=== PATIENT | female | born 1930 | race Caucasian/White ===

== ENCOUNTER → 2017-05-06 | Outpatient (REF) | payer MEDICARE | LOC: M LAB REF 12:43 | PROVIDERS: ATTEND Nurse Practitioner Family | DX: N39.0 Urinary tract infection, site not specified (principal) ==

== ENCOUNTER → 2017-06-24 | Outpatient (CLI) | payer MEDICARE ==
--- NOTE | 2017-06-24 16:35 | REP ---
Parathyroid nuclear scintigraphy with SPECT imaging: History: Hyperparathyroidism. Technique: 26.7 mCi of technetium 99m sestamibi is injected and 15-minute delay and three hour delayed planar images of the head and neck and mediastinum region are acquired. In addition a SPECT acquisition is acquired. Scintigraphic findings: Initial 15-minute images demonstrate normal salivary and thyroid uptake. Delayed scans show washout from the normal thyroid gland. No persistent head and neck or mediastinal uptake focus is seen to suggest parathyroid adenoma. SPECT images are unremarkable. Impression: Negative parathyroid nuclear scintigraphy. Signed by Rick Jones MD 06/24/2017 05:28 P
== END ==
LOC: M RAD 09:04
PROVIDERS: ATTEND Internal Medicine Endocrinology, Diabetes & Metabolism
DX: E21.0 Primary hyperparathyroidism (principal)
CPT/HCPCS: 78070; 78803; A9500

== ENCOUNTER → 2017-08-02 | Outpatient (CLI) | payer MEDICARE ==
[2017-08-03 15:52] LABS: ANION GAP 8 MEQ/L (8-16); BLOOD UREA NITROGEN 26 MG/DL (7-18); CALCIUM LEVEL 10.6 MG/DL (8.8-10.2); CARBON DIOXIDE LEVEL 28 MEQ/L (21-32); CHLORIDE LEVEL 106 MEQ/L (98-107); CREATININE FOR GFR 0.89 MG/DL (0.55-1.02); GLOMERULAR FILTRATION RATE > 60.0 (>32); GLUCOSE, FASTING 89 MG/DL (83-110); POTASSIUM SERUM 3.9 MEQ/L (3.5-5.1); SODIUM LEVEL 142 MEQ/L (136-145)
== END ==
LOC: M LAB 12:05
PROVIDERS: ATTEND Internal Medicine Endocrinology, Diabetes & Metabolism
DX: E21.0 Primary hyperparathyroidism (principal)

== ENCOUNTER → 2017-12-23 | Outpatient (CLI) | payer MEDICARE ==
[2017-12-23 12:53] LABS: CALCIUM LEVEL 9.5 MG/DL (8.8-10.2)
== END ==
LOC: M LAB 11:30
DX: E21.0 Primary hyperparathyroidism (principal)
CPT/HCPCS: 82310

== ENCOUNTER → 2018-01-03 | Outpatient (REF) | payer MEDICARE ==
[2018-01-04 13:20] LABS: FOLATE > 24.0 NG/ML; VITAMIN B12 LEVEL 591 PG/ML
[2018-01-04 13:46] LABS: FERRITIN 55 NG/ML (8-252); IRON (FE) 89 UG/DL (50-170); PERCENT SATURATION 25.6 % (13.2-45.0); TOTAL IRON BINDING CAPACITY 347 UG/DL (250-450)
== END ==
LOC: M LAB REF 12:02
DX: D64.9 Anemia, unspecified (principal)
CPT/HCPCS: 82746

== ENCOUNTER → 2018-05-31 | Outpatient (REF) | payer MEDICARE ==
[2018-05-31 17:51] LABS: RETIC HEMOGLOBIN EQUIVALENT 26.5 pg (24-36); RETICULOCYTE # 82.5 10^9/L (17-77); RETICULOCYTE % 3.2 % (0.5-1.5)
[2018-06-01 15:08] LABS: IMMEDIATE SPIN CROSSMATCH 1 2
== END ==
LOC: M LAB REF 16:31
DX: D64.9 Anemia, unspecified (principal)
CPT/HCPCS: 85046

== ENCOUNTER 2018-06-01 12:03 | Outpatient (CLI) | payer MEDICARE ==
[2018-06-01] MEDS: diphenhydrAMINE 25 MG CAP PO (12:49)
[2018-06-01] MEDS: ACETAMINOPHEN TAB 650MG DOSE (2X325MG) PO (12:49)
== END 2018-06-01 17:30 | disposition home or self-care (01) ==
LOC: M INFU 12:03
DX: D64.9 Anemia, unspecified (principal); Z79.82 Long term (current) use of aspirin; Z79.899 Other long term (current) drug therapy; Z91.013 Allergy to seafood; Z88.8 Allergy status to other drugs, medicaments and biological substances
CPT/HCPCS: 36430

== ENCOUNTER → 2018-06-28 | Outpatient (REF) | payer MEDICARE ==
[2018-06-28 14:12] LABS: RETIC HEMOGLOBIN EQUIVALENT 33.1 pg (24-36); RETICULOCYTE # 63.2 10^9/L (17-77); RETICULOCYTE % 1.9 % (0.5-1.5)
[2018-06-28 14:18] LABS: FERRITIN 14 NG/ML (8-252); IRON (FE) 55 UG/DL (50-170); PERCENT SATURATION 14.2 % (13.2-45.0); TOTAL IRON BINDING CAPACITY 387 UG/DL (250-450)
[2018-06-28 14:25] LABS: VITAMIN B12 LEVEL 965 PG/ML
[2018-06-28 14:26] LABS: FOLATE > 24.0 NG/ML
[2018-06-29 08:15] LABS: HAPTOGLOBIN 81 mg/dL (34-200)
== END ==
LOC: M LABDRAW1 12:50
DX: D64.9 Anemia, unspecified (principal)
CPT/HCPCS: 82746

== ENCOUNTER → 2018-06-30 | Outpatient (CLI) | payer MEDICARE ==
[2018-06-30 13:59] LABS: CREATININE FOR GFR 0.85 MG/DL (0.55-1.30); GLOMERULAR FILTRATION RATE > 60.0 (>32); IMMUNOGLOBULIN A 86 MG/DL (70-400)
[2018-06-30 13:59] LABS: BLOOD UREA NITROGEN 26 MG/DL (7-18)
[2018-07-01 10:22] LABS: TISSUE TRANSGLUTAMINASE IgA <2 U/mL (0-3)
== END ==
LOC: M LAB 12:54
DX: D50.9 Iron deficiency anemia, unspecified (principal); R19.4 Change in bowel habit
CPT/HCPCS: 82565

== ENCOUNTER → 2018-07-04 | Outpatient (REF) | payer MEDICARE | LOC: M LAB REF 12:40 | DX: R19.4 Change in bowel habit (principal) | CPT/HCPCS: 87507 ==

== ENCOUNTER → 2018-07-13 | Outpatient (REF) | payer MEDICARE | LOC: M LAB REF 15:20 | DX: N39.0 Urinary tract infection, site not specified (principal) | CPT/HCPCS: 87186 ==

== ENCOUNTER → 2018-07-15 | Outpatient (CLI) | payer MEDICARE ==
[~2018-07-15] MED LIST: GLUCAGON FOR INJ 1 MG VIAL (J1610) As Ordered; ISOVUE-370 76% 100ML VIAL (Q9967) As Ordered; VoLumen 0.1% SUSPENSION 450ML BOTTLE As Ordered
== END ==
LOC: M RAD 09:58
DX: I70.8 Atherosclerosis of other arteries (principal); K44.9 Diaphragmatic hernia without obstruction or gangrene; K57.30 Diverticulosis of large intestine without perforation or abscess without bleeding; D50.9 Iron deficiency anemia, unspecified; R19.4 Change in bowel habit
CPT/HCPCS: Q9967

== ENCOUNTER 2018-07-22 10:29 | Day surgery (SDC) | payer MEDICARE ==
[~2018-07-22] VITALS: Ht 162.6 cm; Wt 61.7 kg
[~2018-07-22 10:29] MED LIST changes: +AMLO5TAB4 PO; +APAP325T4 PO; +ASPI81TA85 PO; +ATEN100T PO; +ATOR1TAB21 PO; +CENT1TAB PO; +CITRTAB13 PO; +COQ-100C2 PO; +FERR325T3 PO; +FURO20TA2 PO; -GLUCAGON FOR INJ 1 MG VIAL (J1610) As Ordered; -ISOVUE-370 76% 100ML VIAL (Q9967) As Ordered; +KLOR10TA76 PO; +LIDOCAINE 2% INJ 100 MG/5 ML SDV (FOR ANES.) As Ordered ONE; +LUTE15CA PO; +POTA10TA67 PO; +PRED25TA PO; +PRIL20TA2 PO; +PROPOFOL 500 MG/50 ML VIAL As Ordered ONE; +SENN8.6T7 PO; -VoLumen 0.1% SUSPENSION 450ML BOTTLE As Ordered
[2018-07-22] MEDS ORDERED: NS 1,000 ML IV ONE (11:00)
[2018-07-22 12:52] VITALS: BP 152/67
--- NOTE | 2018-07-22 12:52 | ROOR ---
Patient Name: Geetha Orellana Procedure Date: 07/22/2018 11:45 AM Date of : 1930 Age: 88 Room: [facility] Gender: Female Note Status: Finalized Procedure: Upper GI endoscopy Indications: Iron deficiency anemia Providers: Rogelio Turcios MD Referring MD: Suzanna SOSA MD Requesting Provider: Medicines: Monitored Anesthesia Care Complications: No immediate complications. Procedure: Pre-Anesthesia Assessment: - Prior to the procedure, a History and Physical was performed, and patient medications and allergies were reviewed. The patient is competent. The risks and benefits of the procedure and the sedation options and risks were discussed with the patient. All questions were answered and informed consent was obtained. Patient identification and proposed procedure were verified by the physician, the nurse and the anesthesiologist in the procedure room. Mental Status Examination: alert and oriented. Airway Examination: normal oropharyngeal airway and neck mobility. Respiratory Examination: clear to auscultation. CV Examination: normal. Prophylactic Antibiotics: The patient does not require prophylactic antibiotics. Prior Anticoagulants: The patient has taken no previous anticoagulant or antiplatelet agents. ASA Grade Assessment: III - A patient with severe systemic disease. After reviewing the risks and benefits, the patient was deemed in satisfactory condition to undergo the procedure. The anesthesia plan was to use monitored anesthesia care (MAC). Immediately prior to administration of medications, the patient was re-assessed for adequacy to receive sedatives. The heart rate, respiratory rate, oxygen saturations, blood pressure, adequacy of pulmonary ventilation, and response to care were monitored throughout the procedure. The physical status of the patient was re-assessed after the procedure. The Endoscope was introduced through the mouth, and advanced to the second part of duodenum. The upper GI endoscopy was accomplished without difficulty. The patient tolerated the procedure well. Findings: The Z-line was regular and was found 40 cm from the incisors. One 10 mm sessile polyp with no stigmata of recent bleeding was found in the gastric antrum. The polyp was removed with a cold biopsy forceps. Resection and retrieval were complete. For hemostasis, one hemostatic clip was successfully placed. There was no bleeding at the end of the procedure. Verification of patient identification for the specimen was done by the physician and nurse using the patient's name, date and medical record number. Estimated blood loss was minimal. One diminutive angioectasia without bleeding was found in the second portion of the duodenum. The AVM was not treated as it was tiny, no bleeding and due to difficult location. Normal mucosa was found in the duodenal bulb, in the second portion of the duodenum and at the major papilla. Biopsies for histology were taken with a cold forceps for evaluation of celiac disease. Impression: - Z-line regular, 40 cm from the incisors. - One gastric polyp. Resected and retrieved. Clip was placed. - One non-bleeding angioectasia in the duodenum. The AVM was not treated as it was tiny, no bleeding and due to location. - Normal mucosa was found in the duodenal bulb, in the second portion of the duodenum and in the major papilla. Biopsied. Recommendation: - Patient has a contact number available for emergencies. The signs and symptoms of potential delayed complications were discussed with the patient. Return to normal activities tomorrow. Written discharge instructions were provided to the patient. - Resume previous diet. - Continue present medications. - Await pathology results. - Based on the biopsy results you will receive a phone call from GI clinic in 2-3 weeks to review the pathology results AND/OR your results will be faxed to your Primary care physician. - Recommend monitoring of H/H based on clinical course and symptoms. - Return to primary care physician. Rogelio Turcios MD Rogelio Turcios MD 07/22/2018 12:51:43 PM This report has been signed electronically. Number of Addenda: 0 Note Initiated On: 07/22/2018 11:45 AM Estimated Blood Loss: Estimated blood loss was minimal.
--- NOTE | 2018-07-22 13:39 | ROOR ---
Patient Name: Geetha Orellana Procedure Date: 07/22/2018 11:46 AM Date of : 1930 Age: 88 Room: [facility] Gender: Female Note Status: Finalized Procedure: Colonoscopy Indications: Iron deficiency anemia Providers: Rogelio Turcios MD Referring MD: Suzanna SOSA MD Requesting Provider: Medicines: Monitored Anesthesia Care Complications: No immediate complications. Procedure: Pre-Anesthesia Assessment: - Prior to the procedure, a History and Physical was performed, and patient medications and allergies were reviewed. The patient is competent. The risks and benefits of the procedure and the sedation options and risks were discussed with the patient. All questions were answered and informed consent was obtained. Patient identification and proposed procedure were verified by the physician, the nurse and the anesthesiologist in the procedure room. Mental Status Examination: alert and oriented. Respiratory Examination: clear to auscultation. CV Examination: normal. Prophylactic Antibiotics: The patient does not require prophylactic antibiotics. Prior Anticoagulants: The patient has taken no previous anticoagulant or antiplatelet agents. ASA Grade Assessment: II - A patient with mild systemic disease. After reviewing the risks and benefits, the patient was deemed in satisfactory condition to undergo the procedure. The anesthesia plan was to use monitored anesthesia care (MAC). Immediately prior to administration of medications, the patient was re-assessed for adequacy to receive sedatives. The heart rate, respiratory rate, oxygen saturations, blood pressure, adequacy of pulmonary ventilation, and response to care were monitored throughout the procedure. The physical status of the patient was re-assessed after the procedure. The Colonoscope was introduced through the anus and advanced to the terminal ileum, with identification of the appendiceal orifice and IC valve. The colonoscopy was performed without difficulty. The patient tolerated the procedure well. The quality of the bowel preparation was good. The terminal ileum, ileocecal valve, appendiceal orifice, and rectum were photographed. Scope insertion time was 4 minutes. Scope withdrawal time was 9 minutes. The total duration of the procedure was 14 minutes. Findings: The perianal and digital rectal examinations were normal. The terminal ileum appeared normal. One small localized angioectasia without bleeding was found in the cecum. Coagulation for hemostasis using argon plasma was successful. Estimated blood loss: none. A 10 mm polyp was found in the descending colon. The polyp was sessile. The polyp was removed with a cold snare. Resection and retrieval were complete. Verification of patient identification for the specimen was done by the physician and nurse using the patient's name, date and medical record number. Estimated blood loss was minimal. Non-bleeding external and internal hemorrhoids were found during retroflexion. The hemorrhoids were large. Impression: - The examined portion of the ileum was normal. - One non-bleeding colonic angioectasia. Treated with argon plasma coagulation (APC). - One 10 mm polyp in the descending colon, removed with a cold snare. Resected and retrieved. - Non-bleeding external and internal hemorrhoids. Recommendation: - Patient has a contact number available for emergencies. The signs and symptoms of potential delayed complications were discussed with the patient. Return to normal activities tomorrow. Written discharge instructions were provided to the patient. - High fiber diet. - Continue present medications. - Await pathology results. - Repeat colonoscopy after studies are complete for surveillance based on pathology results and depending on clinical and functional status. - Based on the biopsy results you will receive a phone call from GI clinic in 2-3 weeks to review the pathology results AND/OR your results will be faxed to your Primary care physician. - Return to primary care physician. Rogelio Turcios MD Rogelio Turcios MD 07/22/2018 1:39:01 PM This report has been signed electronically. Number of Addenda: 0 Note Initiated On: 07/22/2018 11:46 AM Estimated Blood Loss: Estimated blood loss was minimal.
== END 2018-07-22 13:13 | disposition home or self-care (01) ==
LOC: M OPP 10:29
PROVIDERS: ATTEND Internal Medicine Gastroenterology
DX: K64.8 Other hemorrhoids (principal); K55.20 Angiodysplasia of colon without hemorrhage; D12.4 Benign neoplasm of descending colon; K31.7 Polyp of stomach and duodenum; K31.819 Angiodysplasia of stomach and duodenum without bleeding; D50.9 Iron deficiency anemia, unspecified; R19.4 Change in bowel habit; I10 Essential (primary) hypertension; M06.9 Rheumatoid arthritis, unspecified; E78.00 Pure hypercholesterolemia, unspecified; M31.6 Other giant cell arteritis; Z79.899 Other long term (current) drug therapy; Z88.8 Allergy status to other drugs, medicaments and biological substances; Z90.710 Acquired absence of both cervix and uterus; Z90.89 Acquired absence of other organs

== ENCOUNTER → 2018-12-16 | Outpatient (CLI) | payer MEDICARE ==
[~2018-12-16] MED LIST changes: -AMLO5TAB4 PO; +AMLO5TAB6 PO; -LIDOCAINE 2% INJ 100 MG/5 ML SDV (FOR ANES.) As Ordered ONE; -PROPOFOL 500 MG/50 ML VIAL As Ordered ONE; +SENN1TAB41 PO; -SENN8.6T7 PO
[2018-12-16 11:46] LABS: BASO % 0.2 % (0.0-1.0); EOS # 0.1 10^3/uL (0.0-0.50); EOS % 1.2 % (0.0-3.0); HEMATOCRIT 33.8 % (36.0-47.0); HEMOGLOBIN 10.7 g/dl (12.0-15.5); LYMPH # 0.8 10^3/uL (1.5-4.5); LYMPH % 9.7 % (24.0-44.0); MEAN CORPUSCULAR HGB CONC 31.7 g/dl (32.0-36.5); MEAN CORPUSCULAR VOLUME 94.7 fl (80.0-96.0); MONO # 0.5 10^3/uL (0.0-0.8); MONO % 5.8 % (0.0-5.0); NEUTROPHILS # 6.9 10^3/uL (1.8-7.7); NEUTROPHILS % 82.9 % (36.0-66.0); PLATELET COUNT, AUTOMATED 206 10^3/uL (150-450); RED BLOOD COUNT 3.57 10^6/uL (4.00-5.40); WHITE BLOOD COUNT 8.3 10^3/uL (4.0-10.0)
[2018-12-16 12:43] LABS: BLOOD UREA NITROGEN 19 MG/DL (7-18); CREATININE FOR GFR 0.83 MG/DL (0.55-1.30); FERRITIN 28 NG/ML (8-252); FOLATE > 24.0 NG/ML; GLOMERULAR FILTRATION RATE > 60.0 (>32); IRON (FE) 47 UG/DL (50-170); TOTAL IRON BINDING CAPACITY 362 UG/DL (250-450); VITAMIN B12 LEVEL 784 PG/ML
== END ==
LOC: M LAB 10:54
PROVIDERS: ATTEND Internal Medicine Gastroenterology
DX: D50.9 Iron deficiency anemia, unspecified (principal)

== ENCOUNTER 2018-12-28 13:54 | Emergency (ER) | payer MEDICARE ==
[2018-12-28] MEDS ORDERED: PRED1TABL (14:06)
[2018-12-28 16:06] VITALS: BP 142/65
== END 2018-12-28 16:15 | disposition home or self-care (01) ==
LOC: M ED 13:54
DX: E86.0 Dehydration (principal); R39.81 Functional urinary incontinence; I10 Essential (primary) hypertension; Z79.899 Other long term (current) drug therapy; Z91.013 Allergy to seafood; Z88.8 Allergy status to other drugs, medicaments and biological substances

== ENCOUNTER → 2019-01-16 | Outpatient (CLI) | payer MEDICARE ==
[~2019-01-16] MED LIST changes: +PRED1TABL
== END ==
LOC: M LAB 10:31
PROVIDERS: ATTEND Nurse Practitioner
DX: M31.6 Other giant cell arteritis (principal)

== ENCOUNTER → 2019-01-27 | Outpatient (REF) | payer BC | LOC: M LAB REF 11:33 | PROVIDERS: ATTEND Internal Medicine | DX: M06.9 Rheumatoid arthritis, unspecified (principal) ==

== ENCOUNTER → 2019-02-07 | Outpatient (REF) | payer BC | LOC: M LAB REF 17:10 | PROVIDERS: ATTEND Internal Medicine | DX: M31.6 Other giant cell arteritis (principal) ==

== ENCOUNTER → 2019-04-04 | Outpatient (REF) | payer BC | LOC: M LAB REF 17:13 | PROVIDERS: ATTEND Internal Medicine | DX: R10.9 Unspecified abdominal pain (principal) ==

== ENCOUNTER → 2019-04-27 | Outpatient (REF) | payer BC | LOC: M LAB REF 12:08 | PROVIDERS: ATTEND Internal Medicine | DX: R19.7 Diarrhea, unspecified (principal) ==

== ENCOUNTER → 2019-05-15 | Outpatient (CLI) | payer BC ==
[2019-05-15 13:23] LABS: BASO % 0.3 % (0.0-1.0); EOS # 0.1 10^3/uL (0.0-0.5); EOS % 1.5 % (0.0-3.0); HEMATOCRIT 36.3 % (36.0-47.0); HEMOGLOBIN 11.7 g/dl (12.0-15.5); LYMPH # 0.9 10^3/uL (1.5-5.0); LYMPH % 11.5 % (24.0-44.0); MEAN CORPUSCULAR HEMOGLOBIN 30.3 pg (27.0-33.0); MEAN CORPUSCULAR HGB CONC 32.2 g/dl (32.0-36.5); MONO # 0.3 10^3/uL (0.0-0.8); MONO % 4.2 % (0.0-5.0); NEUTROPHILS # 6.1 10^3/uL (1.5-8.5); NEUTROPHILS % 82.2 % (36.0-66.0); PLATELET COUNT, AUTOMATED 193 10^3/uL (150-450); RED BLOOD COUNT 3.86 10^6/uL (4.00-5.40); WHITE BLOOD COUNT 7.4 10^3/uL (4.0-10.0)
[2019-05-15 13:56] LABS: PERCENT SATURATION 18.8 % (13.2-45.0)
[2019-05-15 13:58] LABS: FOLATE 20.2 NG/ML (>5.4)
== END ==
LOC: M LAB 12:37
PROVIDERS: ATTEND Physician Assistant Medical
DX: D50.9 Iron deficiency anemia, unspecified (principal)

== ENCOUNTER → 2020-02-08 | Outpatient (CLI) | payer BC ==
[~2020-02-08] MED LIST changes: +AMLO1TAB24 PO; -AMLO5TAB6 PO; -ASPI81TA85 PO; +ASPI81TA86 PO; -CITRTAB13 PO; +CITRTAB16 PO
[2020-02-08 11:45] LABS: HEMATOCRIT 37.4 % (36.0-47.0); HEMOGLOBIN 12.4 g/dl (12.0-15.5); MEAN CORPUSCULAR HEMOGLOBIN 32.5 pg (27.0-33.0); MEAN CORPUSCULAR HGB CONC 33.2 g/dl (32.0-36.5); MEAN CORPUSCULAR VOLUME 97.9 fl (80.0-96.0); PLATELET COUNT, AUTOMATED 169 10^3/uL (150-450); RED BLOOD COUNT 3.82 10^6/uL (4.00-5.40); WHITE BLOOD COUNT 7.6 10^3/uL (4.0-10.0)
[2020-02-08 12:22] LABS: PERCENT SATURATION 23.3 % (13.2-45.0)
== END ==
LOC: M LAB 10:27
PROVIDERS: ATTEND Physician Assistant Medical
DX: D50.9 Iron deficiency anemia, unspecified (principal)

== ENCOUNTER → 2020-02-13 | Outpatient (REF) | payer MEDICARE ==
[~2020-02-13] MED LIST changes: -AMLO1TAB24 PO; +AMLO5TAB6 PO; +ASPI81TA85 PO; -ASPI81TA86 PO
== END ==
LOC: M LAB REF 12:10
PROVIDERS: ATTEND Internal Medicine
DX: N39.0 Urinary tract infection, site not specified (principal)

== ENCOUNTER → 2020-06-04 | Outpatient (REF) | payer MEDICARE ==
[~2020-06-04] MED LIST changes: +AMLO1TAB24 PO; -AMLO5TAB6 PO; -ASPI81TA85 PO; +ASPI81TA86 PO
== END ==
LOC: M LAB REF 16:27
PROVIDERS: ATTEND Physician Assistant Medical
DX: N39.0 Urinary tract infection, site not specified (principal)

== ENCOUNTER → 2020-06-26 | Outpatient (CLI) | payer MEDICARE | LOC: M LABSMTC 12:57 | PROVIDERS: ATTEND Ophthalmology | DX: Z01.812 Encounter for preprocedural laboratory examination (principal); Z20.828 Contact with and (suspected) exposure to other viral communicable diseases; C44.1192 Basal cell carcinoma of skin of left lower eyelid, including canthus ==

== ENCOUNTER → 2020-07-08 | Outpatient (REF) | payer MEDICARE ==
[2020-07-08 14:05] LABS: APPEARANCE, URINE CLEAR (CLEAR); BACTERIA, URINE AUTO NEGATIVE (NEGATIVE); BILIRUBIN, URINE AUTO NEGATIVE (NEGATIVE); BLOOD, URINE BLOOD NEGATIVE (NEGATIVE); COLOR, URINE COLORLESS (YELLOW); GLUCOSE, URINE (UA) AUTO NEGATIVE (NEGATIVE); KETONE, URINE AUTO NEGATIVE (NEGATIVE); LEUKOCYTE ESTERASE, URINE AUTO NEGATIVE (NEGATIVE); NITRITE, URINE AUTO NEGATIVE (NEGATIVE); PROTEIN, URINE AUTO NEGATIVE (NEGATIVE); RBC, URINE AUTO 0 /HPF (0-3); SPECIFIC GRAVITY URINE AUTO 1.003 (1.002-1.035); SQUAMOUS EPITHELIAL CELL UR AU 0 /HPF (0-6); UROBILINOGEN, URINE AUTO 0.2 mg/dL (0.0-2.0); WBC, URINE AUTO 0 /HPF (0-3)
== END ==
LOC: M SMT 13:15
PROVIDERS: ATTEND Urology
DX: N32.0 Bladder-neck obstruction (principal)
CPT/HCPCS: 81001; G0463

== ENCOUNTER → 2020-07-10 | Outpatient (CLI) | payer MEDICARE | LOC: M LABSMTC 12:07 | PROVIDERS: ATTEND Ophthalmology | DX: Z20.828 Contact with and (suspected) exposure to other viral communicable diseases (principal) ==